=== PATIENT | female | born 1975 | race Caucasian/White ===

== ENCOUNTER 2016-11-08 09:55 | Inpatient (IN) | payer SELFPAY ==
[~2016-11-08] VITALS: Ht 162.6 cm; Wt 69.5 kg
[2016-11-08] VITALS (12 sets, daily range): BP systolic 106–143; BP diastolic 58–79
[2016-11-08 10:41] LABS: LYMPH # 1.5 K/mm3 (0.7-4.5); LYMPH % 15.3 % (10-50.0)
[2016-11-08 10:46] LABS: HEMOGLOBIN 10.3 g/dL (12.2-16.2)
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
--- NOTE | 2016-11-08 11:47 | ACUTE CARE PROGRESS NOTE (QUA) ---
Progress Notes Subjective Date 11/08/16 Time 1138 Note 41 y.o. WF admitted via ER with GI bleed. [place] poorly this AM, vomited coffee ground material, passed out. Emesis in ER hemoccult positive. No such prior history, but father has had ulcer disease. Water source is city water, not cistern. No medications. Occasional Tylenol, not Aspirin or Ibuprofen. Periods are regular but heavy. No smoking, no ETOH. She is Yarsani. Objective Findings Last VS-Temp:98.2 B/P:107/53 Pulse:90 Resp:20 SaO2:100 Last weight lbs:150 oz:0 K.040 Method:Stated Exam General appearance: alert, no acute distress Eyes: anicteric, conjunctiva clear, PERRLA ENT: mucous membranes moist, teeth/gums normal Neck: no JVD, thyroid (normal) Cardiovascular: regular rate & rhythm Respiratory: clear to auscultation ABD: soft, no tenderness, no guarding, no organomegaly Genitourinary: not examined Extremities: no peripheral edema Skin: dry, intact, pale (a bit sallow) Neuro: alert, no deficit, oriented, speech clear Reviewed: vital signs, lab results Assessment/Plan Problem List 1. Gastrointestinal hemorrhage Patient condition Stable Plan: IV fluids. T&C. Screen for H. pylori. Surgical consult for endoscopy. This inpt stay is expected to cross 2 MNs from start of care Yes at 1146
[2016-11-08] MEDS ORDERED: NOMEDS XX (12:21)
--- NOTE | 2016-11-08 12:29 | HISTORY AND PHYSICAL REPORT ---
History and Physical ([facility]) Date of admission: 11/08/16 Chief complaint: GI Bleed History: History of Present Illness: Ms. Fay is a 41 y.o. WF admitted via ER with GI bleed. She had felt poorly this morning with some lightheadedness and dizziness and describes passing out abruptly while in bed. When she came to, she vomited some coffee ground material. Her emesis in ER was hemoccult positive. CXR and CT of the abdomen and pelvis were performed and preliminary results are pending. She has no such prior history, but father has had ulcer disease. Her water source is city water, not cistern. She takes no medications other than occasional tylenol, not aspirin or ibuprofen. Her periods are regular but heavy. She does not smoke or drink alcohol. She is Caodaism. She will be admitted for surgery consult for endoscopy. Past Medical History: Medical History: CAD? No Angina: No KS: No Hypertension? No Hyperlipidemia? No CHF? No DVT? No PE? No COPD? No Asthma? No Anemia? No GERD? No Gastric ulcers? No GI Bleed? No Hernia? No Thyroid Problems? No Hypothyroidism? No CVA? No Seizures? No Diabetes? No Renal Insuffiency? No UTI? No Stones? No BPH? No GB Disease: No Nephritic Syndrome? No Asplenia? No Hepatitis? No Sickle Cell Disease? No Arthritis? No Migraines? No Cataracts? No Glaucoma? No MRSA? No HIV? No TB? No Anxiety? No Depression? No Cancer? No More? No Surgical history: Previous Surgery?N Medications: Reported Medications No Home Medications (NO HOME MEDICATIONS) 1 EACH XX ONCE Allergies: Coded Allergies: No Known Allergies (11/08/16) Family History: Family history: Postive for: CAD, DM, HTN, cancer, stroke. Social History: Smoking Hx Tobacco: No Smoker: Never Smoker Type: N/A Packs/day: N/A Are you exposed to second hand No Alcohol: Alcohol: No Hx of Drug Use: Drug Use? 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 No Constitutional Positive for: fatigue, weak. No: chills. ENT No: nasal congestion, sinus problems, sore throat. Cardiovascular No: [place], chest pain, edema, palpitations. Respiratory No: dyspnea on exertion, shortness of air, non-productive, productive cough ( sputum), wheezing. GI Positive for: abdominal pain, hematemeis, nausea, vomitting. No: GERD, constipation, diarrhea. (female) No: frequency, hematuria, urgency, vaginal discharge. Skin No: bruising, itching, rash. Neurological Positive for: change in LOC, dizziness, light headed, syncope. No: bladder dysfunction, bowel dysfunction, gait problem, numbness, slurred speech. Immune/allergy No: allergy, itching. Eyes No: blurry vision, discharge, vision loss. Musculoskeletal No: extremity pain, joint pain, myalgias. Heme No: bleeding, bruising. Psychiatric No: anxious, depression, change in mental status. Physical Exam: Vital signs: 1ST Vital Signs Result Date Time Pulse Ox 99 11/08 957 B/P 143/79 11/08 957 Temp 98.2 11/08 957 Pulse 87 11/08 957 Resp 16 11/08 957 O2 Delivery ROOM AIR 11/08 1219 Exam: General appearance: alert, awake, no acute distress Eyes: anicteric, PERRLA, no discharge ENT: mucous membranes moist, pharynx normal, teeth/gums normal, nares patent Neck: non-tender, supple, no LAD Cardiovascular: regular rate & rhythm, normal peripheral pulses Respiratory: CTAB A&P ABD: non-distended, no rebound, soft, no tenderness, no guarding, no organomegaly, no palpable mass, bowel sounds present Extremities: moves all, no peripheral edema, warm, no calf tenderness Skin: dry, intact, warm Neuro: alert, applications processor II-XII nml as tested, oriented, speech clear Lab data: Labs: Laboratory Tests 11/08/16 1020: Creatine Kinase 88, CK-MB (CK-2) Rel Index 1.3, CK and CKMB Interp 1.1, Troponin I < 0.02 11/08/16 1020: Amylase 44, Lipase 134 11/08/16 1020: Sodium 144, Potassium 3.4 L, Chloride 107, Carbon Dioxide 27, BUN 24 H, Creatinine 0.8, Estimated Creat Clear 97, Estimated GFR (MDRD) 78, Glucose 155 H, Calcium 8.0 L, Total Bilirubin 0.2, AST 9 L, ALT 17, Alkaline Phosphatase 45 L, Total Protein 6.6, Albumin 3.3 L, Globulin 3.3 H, Albumin/Globulin Ratio 1.0 L, WBC 10.0, RBC 3.49 L, Hgb 10.3 L, Hct 31.6 L, MCV 90.6, RDW 13.0, Plt Count 214, MPV 7.4, Gran % 79.9, Gran # 8.0 H, Lymphocytes % 15.3, Monocytes % 3.5, Eosinophils % 1.2, Basophils % 0.2, Lymphocytes # 1.5, Monocytes # 0.4, Eosinophils # 0.1, Basophils # 0.0, PUBS MCHC 32.6, MCH 29.5 11/08/16 1015: PT 11.2, INR 1.04 11/08/16 0957: Emesis for Blood POSITIVE Radiology results: Results: 11/08/16 CT Abdomen/Pelvis with Contrast: Pending Diagnosis(es): 1. Gastrointestinal hemorrhage 2. Anemia Plan: per Dr. Corona - LUIS ARMANDO, T&C, screen for H.pylori, Surgery consult for endoscopy. at [id number]
--- NOTE | 2016-11-08 12:42 | RADIOLOGY REPORT PS360 ---
CT ABD PELVIS W/ CONTRAST CLINICAL INDICATION: ABD PAIN, HEMATHEMESIS ORDERING PHYSICIAN: Luana Corona MD PATIENT AGE: 41 years COMPARISON: None TECHNIQUE: Axial images obtained with sagittal and coronal reformats. PROCEDURE: Oral Contrast: None IV Contrast: 75 mL of [id number]. FINDINGS: There is alveolar opacification in the left lower lobe consistent with pneumonia. There is a large lobulated partially calcified peripherally enhancing mass in the right upper quadrant measuring 8.5 cm AP, 7.7 cm transverse, an 8.6 cm cephalad to caudad. This is inferior to the gallbladder. This is directly adjacent to the medial anterior aspect of the right hepatic lobe. A fat plane is not present between the right hepatic lobe and this mass. This is anterior to the right kidney. There is however a fat plane preserved between this mass and the right kidney.. This mass is superior to the hepatic flexure of the colon. The calcifications within this mass are coarse and are mostly central. The spleen, adrenal glands, and pancreas have an unremarkable appearance. There are bilateral nonobstructing renal calculi in the upper and lower pole on the right measuring up to 4 mm and in the lower pole on the left measuring 4 mm. No hydronephrosis. No ureteral calculi. Unremarkable appendix. No evidence of diverticulitis. Fluid is present within the colon greater in the ascending and transverse colon. Fluid and/or liquid feces noted within the descending and sigmoid colon. Diarrhea disease is considered. No small bowel obstruction. There is small amount fluid in the small bowel nonspecific. The uterus is somewhat canted toward the left with mild bulging is of the uterus. No acute bony anomalies are evident. IMPRESSION: 1. Unusual partially calcified enhancing right upper quadrant mass. Etiology is indeterminate. The mass is inseparable from the right hepatic lobe. Exophytic liver lesion such as a large hemangioma is a consideration. A carcinoid tumor is also a consideration. However, there is not a significant desmoplastic reaction around the lesion. Further evaluation may be obtained with CT without and with contrast and with delayed imaging/hemangioma protocol. 2. Fluid-filled large bowel suggesting diarrhea disease/colitis.
--- NOTE | 2016-11-08 13:30 | CONSULT NOTE ---
See Addendum Standard Demographics Patient Demo Date of Consultation: 11/08/16 Referring Provider: Chema Corona MD Reason for Consultation: hematemesis PRIMARY DIAGNOSIS: ANEMIA Allergies: Coded Allergies: No Known Allergies (11/08/16) History of Present Illness Chief Complaint: Nausea and vomiting History of Present Illness: This is a 41-year-old female seen in consultation from Dr. Corona service for evaluation regarding hematemesis. She presented to the emergency department earlier today with dizziness/lightheadedness. She believes that she "passed out in bed". Subsequently, she developed some dark emesis that was described as "coffee ground material". No melena. She states that she feels "a little better right now". She has had no episodes of emesis since admission. Past Medical History Denies: CAD, COPD, hypertension, peptic ulcer disease. Surgical History Previous Surgery?N Allergies Coded Allergies: No Known Allergies (11/08/16) Medications: Reported Medications No Home Medications (NO HOME MEDICATIONS) 1 EACH XX ONCE Family history Postive for: CAD, HTN, cancer. Smoking Hx Tobacco: No Smoker: Never Smoker Type: N/A Packs/day: N/A Are you/the child exposed to second-hand smoke: No Alcohol Alcohol: No Hx of Drug Use Drug Use? No Review of Systems Constitutional No: recent weight loss. Skin No: bruising. Immune/allergy No: anaphalaxis. Eyes No: discharge. ENT No: nose bleed. Respiratory No: pneumonia. Cardiovascular No: palpitations. GI Positive for: hematemeis, nausea, vomitting. No: melena, rectal pain. (female) No: hematuria. Musculoskeletal No: myalgias. Heme No: petechia. Endocrine No: polydipsia. Neurological Positive for: change in LOC, dizziness. Psychiatric No: anxious. Physical Exam VS/I&O Vital Signs Date Time Temp Pulse Resp B/P Pulse O2 O2 Flow FiO2 Ox Delivery Rate 11/08 1312 97 11/08 1312 100 ROOM AIR 11/08 1219 98.0 97 18 112/60 100 ROOM AIR 11/08 1211 98.2 90 20 107/53 100 11/08 1102 90 20 107/53 100 11/08 1101 100 107/53 11/08 1101 99 113/73 11/08 1100 87 121/78 11/08 0958 98.2 87 16 143/79 99 Exam General appearance no acute distress Neck full ROM Respiratory no distress Cardiovascular regular rate and rhythm Abdomen soft Skin no gross abnormalities Plan Plan: Impression: Hematemesis/upper gastrointestinal hemorrhage - currently hemodynamically stable with some recent improvement in symptoms Plan: 1) close observations for signs of ongoing bleeding 2) follow-up pending hemoglobin/hematocrit (as ordered later today) 3) esophagogastroduodenoscopy-I have discussed the risks and benefits and she agrees to proceed. Barring need for emergent endoscopy, this procedure will be performed tomorrow morning to allow for better clearance of gastric contents 4) sips and chips are okay for now, but she will be made NPO after midnight for endoscopy in the morning at 1330
[2016-11-08 14:42] LABS: HEMOGLOBIN 8.5 g/dL (12.2-16.2)
--- NOTE | 2016-11-08 16:16 | PHARMACY CLINIC NOTE ---
Patient Demographics Patient Demographics Admission date: 11/08/16 Date: 11/08/16 Time: 1615 Allergies Coded Allergies: No Known Allergies (11/08/16) HEIGHT- FT: 5 IN: 4.00 K.542 VTE General Information Labs: Laboratory Tests 11/08 11/08 11/08 1415 1020 1015 Coagulation PT (9.4 - 11.8 SECONDS) 11.2 INR (0.9 - 1.1) 1.04 Hematology Hgb (12.2 - 16.2 g/dL) 8.5 L 10.3 L Hct (37.0 - 47.0 %) 25.6 L 31.6 L Plt Count (142 - 424 K/mm3) 214 Disclaimer The following section includes nursing documentation that has been pulled in for pharmacy review. Patient's VTE score: 1 Patient's VTE Risk: VERY LOW RISK Clinical trial participant? No VTE prophylaxis [id number] VTE prophylaxis ordered? Yes Type of prophylaxis/treatment: ALISA at 1615
[2016-11-08 20:24] LABS: HEMOGLOBIN 7.7 g/dL (12.2-16.2)
[2016-11-08 23:44] LABS: ABO BLOOD TYPE A; ANTIHUMAN GLOB CROSSMATCH COMPAT; RH BLOOD TYPE POSITIVE
[2016-11-09] VITALS (53 sets, daily range): BP systolic 66–162; BP diastolic 27–96
[2016-11-09 04:30] LABS: HEMOGLOBIN 7.3 g/dL (12.2-16.2)
[2016-11-09 06:23] LABS: ANTIHUMAN GLOB CROSSMATCH COMPAT
[2016-11-09 06:24] LABS: ANTIHUMAN GLOB CROSSMATCH COMPAT
--- NOTE | 2016-11-09 06:33 | SURGEON PROGRESS NOTE ---
Subjective data Subjective data: No new complaints. Posttransfusion hemoglobin actually lower than pretransfusion hemoglobin. No hematemesis. Objective data Vitals,I&O,and Labs: Vital signs, intake and output,and available lab data for the last 24 hours is as noted below. Vital Signs Date Time Temp Pulse Resp B/P Pulse O2 O2 Flow FiO2 Ox Delivery Rate 11/09 0555 98.7 105 18 112/70 09/08 0540 98.7 102 16 115/72 09/08 0525 99.2 103 16 115/70 09/08 0520 99.1 100 15 115/61 09/08 0515 99.3 101 16 117/67 09/08 0510 99.4 104 16 124/74 09/08 0429 98.6 102 16 118/62 97 ROOM AIR 09/08 0240 98.8 106 18 112/65 09/08 0225 98.6 104 19 105/61 09/08 0210 98.7 100 18 103/64 09/08 0205 98.7 101 17 66/27 09/08 0200 98.7 100 17 101/43 09/08 0155 98.7 100 18 139/52 09/08 0135 98.8 97 16 134/63 09/08 0125 98.8 92 16 132/74 09/08 0025 98.7 89 16 122/76 09/08 0010 98.8 95 18 105/71 09/07 2357 99.0 99 16 113/68 100 ROOM AIR 09/07 2355 98.9 99 16 113/68 09/07 2340 98.9 103 16 118/58 09/07 2335 98.9 98 18 114/65 09/07 2330 98.9 105 16 106/60 09/07 2325 99.0 96 16 114/68 09/07 2008 99.1 107 18 115/65 98 09/07 2000 99.1 107 18 115/65 98 ROOM AIR 09/07 1548 114 121/70 09/07 1548 115 106/65 09/07 1546 99.0 110 18 115/66 100 ROOM AIR 09/07 1312 97 09/07 1312 98.0 97 18 112/60 09/07 1312 100 ROOM AIR 09/07 1219 98.0 97 18 112/60 100 ROOM AIR 09/07 1211 98.2 90 20 107/53 100 09/07 1102 90 20 107/53 100 11/08 1101 100 107/53 11/08 1101 99 113/73 11/08 1100 87 121/78 09 0958 98.2 87 16 143/79 99 09/07 1500 11/08 2300 11/09 0700 Intake Total 0 620 Output Total 1000 Balance 0 -380 Intake, IV 620 Intake, Oral 0 Output, Urine 1000 Patient 69.542 kg Weight Laboratory Tests Test Result Date Time Chemistry Sodium (mmoL/L) 144 11/08 1020 Potassium (mmoL/L) 3.4 11/08 1020 Chloride (mmoL/L) 107 11/08 1020 Carbon Dioxide (mmoL/L) 27 11/08 1020 BUN (mg/dL) 24 11/08 1020 Creatinine (mg/dL) 0.8 11/08 1020 Estimated Creat Clear (ML/MIN) 97 11/08 1020 Estimated GFR (MDRD) (ML/MIN) 78 11/08 1020 Glucose (mg/dL) 155 11/08 1020 Calcium (mg/dL) 8.0 11/08 1020 Total Bilirubin (mg/dL) 0.2 11/08 1020 AST (U/L) 9 11/08 1020 ALT (U/L) 17 11/08 1020 Alkaline Phosphatase (U/L) 45 11/08 1020 Creatine Kinase (U/L) 88 11/08 1020 CK-MB (CK-2) Rel Index (U/L) 1.3 11/08 1020 CK and CKMB Interp (ng/mL) 1.1 11/08 1020 Troponin I (ng/mL) < 0.02 11/08 1020 Total Protein (gm/dL) 6.6 11/08 1020 Albumin (gm/dL) 3.3 11/08 1020 Globulin (gm/dL) 3.3 11/08 1020 Albumin/Globulin Ratio 1.0 11/08 1020 Amylase (U/L) 44 11/08 1020 Lipase (U/L) 134 11/08 1020 Coagulation PT (SECONDS) 11.2 11/08 1015 INR 1.04 11/08 1015 Hematology WBC (K/MM3) 10.0 11/08 1020 RBC (M/mm3) 3.49 11/08 1020 Hgb (g/dL) 7.3 11/09 0410 Hct (%) 22.6 11/09 0410 MCV (fl) 90.6 11/08 1020 RDW (%) 13.0 11/08 1020 Plt Count (K/mm3) 214 11/08 1020 MPV (fl) 7.4 11/08 1020 Gran % (%) 79.9 11/08 1020 Gran # (K/mm3) 8.0 11/08 1020 Lymphocytes % (%) 15.3 11/08 1020 Monocytes % (%) 3.5 11/08 1020 Eosinophils % (%) 1.2 11/08 1020 Basophils % (%) 0.2 11/08 1020 Lymphocytes # (K/mm3) 1.5 11/08 1020 Monocytes # (K/mm3) 0.4 11/08 1020 Eosinophils # (K/mm3) 0.1 11/08 1020 Basophils # (K/MM3) 0.0 11/08 1020 PUBS MCHC (g/dl) 32.6 11/08 1020 Immunology Antibody Screen NEGATIVE 11/08 1015 MCH (pg) 29.5 11/08 1020 Miscellaneous Miscellaneous Test POSITIVE 11/08 1015 Misc Test Units BLOOD UNIT RELEASE 11/09 0145 Other Body Source Emesis for Blood POSITIVE 11/08 0957 Assessment findings Assessment Exam General appearance: no acute distress Cardiovascular: tachycardia ABD: soft Patient plan Diagnoses: Gastrointestinal hemorrhage - possible ongoing blood loss is noted by declining hemoglobin RIGHT upper quadrant abdominal mass Plan: (see below) Additional data: The patient is being transferred to the endoscopy suite for EGD. at 0632
[2016-11-09 06:51] LABS: LYMPH # 1.5 K/mm3 (0.7-4.5); LYMPH % 16.6 % (10-50.0)
[2016-11-09 07:04] LABS: HEMOGLOBIN 7.9 g/dL (12.2-16.2)
--- NOTE | 2016-11-09 07:26 | Operative Note ---
Surgeon/Diagnoses Surgeon/[employer](s) Date of procedure: 11/09/16 Surgeon: MD Twila Price Diagnoses Pre-op diagnosis: Upper gastrointestinal hemorrhage Post-op diagnosis Duodenal ulcer with recent bleed Procedure Procedure Procedure: Esophagogastroduodenoscopy with biopsy and epinephrine injection Indications: ADRIEN HERNANDEZ is a 41 year-old Female with a history of recent hematemesis and declining hemoglobin. Findings: Patchy gastritis Moderately sized crater ulcer in the duodenal bulb with clot in the base No active bleeding noted 13 mL of 1:10,000 epinephrine injected Procedure Description: After informed consent was obtained, the patient was taken to the endoscopy suite. Monitored anesthesia care ensued after she was transferred to the LEFT lateral decubitus position. The gastroscope was advanced. The stomach was entered. Patchy gastritis was noted. Antral biopsies were obtained. The pylorus was intubated. A moderately sized crater ulcer in the bulb was noted. Evaluation of the base revealed clot. No ongoing bleeding was noted. Secondary to recent hemorrhage and clot at the base the decision was made to proceed with epinephrine injection. 13 mL of 1:10,000 epinephrine was injected in quadrants around the margin of the ulcer. The gastroscope was carefully removed and the patient was transferred to recovery. EBL (ml): 1 Anesthesia: Monitored anesthesia care Complications: No immediate Specimens: Antral biopsies Disposition Disposition: Stable to recovery from where she will be transferred back to the floor. at 9124
--- NOTE | 2016-11-09 07:34 | Anesthesia Record ---
Anesthesia Record Part I Total IV fluids: 300 EBL (ml): 0 Urine Output: 0 B/P: 118/70 % SaO2: 100 Pulse: 72 Resps: 16 Temp: 98.0 Patient is: Drowsy, Nasal O2, Stable Stable to PACU at: 0704 at 0734
--- NOTE | 2016-11-09 07:35 | Anesthesia Record ---
Anesthesia Record Part II Discharge time: 733 Destination: Second Floor PACU nurse assessment review? Yes Patient is: Stable Anesthesia complications? No at 0734
--- NOTE | 2016-11-09 09:04 | ACUTE CARE PROGRESS NOTE (QUA) ---
See Addendum Progress Notes Subjective Date 11/09/16 Time 0820 Note Pt up from endo with nausea and epigastric discomfort. One episode of emesis as well as some loose stools. She is resting somewhat restlessly with her at the bedside. Blood transfusion in progress. Objective Findings Last VS-Temp:98.0 B/P: 118/70 Pulse:72 Resp:16 SaO2:100 ROOM AIR Last weight lbs: 153 oz: 5 K.542 Method: Bed Scales Laboratory Tests 11/09/16 0752: Misc Test Units BLOOD UNIT RELEASE 11/09/16 0620: Sodium 145, Potassium 4.1, Chloride 115 H, Carbon Dioxide 23, BUN 36 H, Creatinine 0.6, Estimated Creat Clear 133, Estimated GFR (MDRD) 109, Glucose 119 H, Calcium 6.6 L, WBC 9.0, RBC 2.69 L, Hgb 7.9 *L, Hct 23.5 *L, MCV 87.4, RDW 14.2, Plt Count 149, MPV 7.5, Gran % 77.8, Gran # 7.0, Lymphocytes % 16.6, Monocytes % 5.0, Eosinophils % 0.3, Basophils % 0.2, Lymphocytes # 1.5, Monocytes # 0.5, Eosinophils # 0.0, Basophils # 0.0, PUBS MCHC 33.8, MCH 29.5 11/09/16 0610: WBC 8.5, RBC 2.72 L, Hgb 8.0 L, Hct 23.8 *L, MCV 87.3, RDW 14.1, Plt Count 150 , MPV 7.3 L, Gran % 76.9, Gran # 6.6, Lymphocytes % 17.9, Monocytes % 4.8, Eosinophils % 0.2, Basophils % 0.2, Lymphocytes # 1.5, Monocytes # 0.4, Eosinophils # 0.0, Basophils # 0.0, PUBS MCHC 33.5, MCH 29.2 11/09/16 0500: Misc Test Units BLOOD UNIT RELEASE 11/09/16 0410: Hgb 7.3 *L, Hct 22.6 *L 11/09/16 0145: Misc Test Units BLOOD UNIT RELEASE 11/08/16 2315: Misc Test Units BLOOD UNIT RELEASE 11/08/16 1957: Hgb 7.7 *L, Hct 23.7 *L 11/08/16 1415: Hgb 8.5 L, Hct 25.6 L 11/08/16 1020: Creatine Kinase 88, CK-MB (CK-2) Rel Index 1.3, CK and CKMB Interp 1.1, Troponin I < 0.02 11/08/16 1020: Amylase 44, Lipase 134 11/08/16 1020: Sodium 144, Potassium 3.4 L, Chloride 107, Carbon Dioxide 27, BUN 24 H, Creatinine 0.8, Estimated Creat Clear 97, Estimated GFR (MDRD) 78, Glucose 155 H, Calcium 8.0 L, Total Bilirubin 0.2, AST 9 L, ALT 17, Alkaline Phosphatase 45 L, Total Protein 6.6, Albumin 3.3 L, Globulin 3.3 H, Albumin/Globulin Ratio 1.0 L, WBC 10.0, RBC 3.49 L, Hgb 10.3 L, Hct 31.6 L, MCV 90.6, RDW 13.0, Plt Count 214, MPV 7.4, Gran % 79.9, Gran # 8.0 H, Lymphocytes % 15.3, Monocytes % 3.5, Eosinophils % 1.2, Basophils % 0.2, Lymphocytes # 1.5, Monocytes # 0.4, Eosinophils # 0.1, Basophils # 0.0, PUBS MCHC 32.6, MCH 29.5 11/08/16 1015: PT 11.2, INR 1.04, Antibody Screen NEGATIVE, Miscellaneous Test POSITIVE 11/08/16 0957: Emesis for Blood POSITIVE Vital Signs Result Date Time Pulse Ox 100 11/09 733 B/P 118/70 11/09 733 Temp 98.0 11/09 733 Pulse 72 11/09 733 Resp 16 11/09 733 O2 Delivery ROOM AIR 11/09 042 Exam General appearance: drowsy, slightly restless, responds to voice Cardiovascular: regular rate & rhythm, normal peripheral pulses Respiratory: CTAB A&P ABD: non-distended, no rebound, soft, no guarding, no organomegaly, no palpable mass, bowel sounds present, ttp epigastrium Extremities: moves all, no peripheral edema, warm, no calf tenderness Reviewed: medications, vital signs, lab results, radiology report, consult note, nursing notes Assessment/Plan Problem List 1. Gastrointestinal hemorrhage 2. Anemia Patient condition Guarded Plan: Will continue to monitor H&H post transfusion. Further per GI. This inpt stay is expected to cross 2 MNs from start of care Yes at 0904 at 0923
[2016-11-09 11:29] LABS: HEMOGLOBIN 9.5 g/dL (12.2-16.2)
[2016-11-09 14:24] LABS: HEMOGLOBIN 7.5 g/dL (12.2-16.2)
--- NOTE | 2016-11-09 15:25 | ACUTE CARE PROGRESS NOTE (QUA) ---
Progress Notes Subjective Date 11/09/16 Time 1520 Note I was contacted by patient's nurse, who reported possible seizure activity, which was brief, and resolved. The patient's hands moses up to her chest and she seemed unconscious. I am in [facility] in [place]. I directed nurse to obtain stat H &H and I contacted Dr. Vasquez. He went to see patient and found that the Hgb has again declined to 7.5. Dr. Vasquez took the patient back for endoscopy. Objective Findings Last VS-Temp:98.5 B/P:146/90 Pulse:99 Resp:16 SaO2:100 ROOM AIR Last weight lbs:153 oz:5 K.542 Method:Bed Scales Assessment/Plan Problem List 1. Gastrointestinal hemorrhage 2. Anemia Plan: Repeat endoscopy per Dr. Vasquez. This inpt stay is expected to cross 2 MNs from start of care Yes at 1521
[2016-11-09 15:43] LABS: ANTIHUMAN GLOB CROSSMATCH COMPAT
[2016-11-09 15:45] LABS: ANTIHUMAN GLOB CROSSMATCH COMPAT
--- NOTE | 2016-11-09 15:53 | Operative Note ---
Surgeon/Diagnoses Surgeon/Fraud Investigator(s) Date of procedure: 11/09/16 Surgeon: MD Twila Vasquez Fraud Investigator(s): Dr. Mcrae Diagnoses Pre-op diagnosis: Recurrent hemorrhage from duodenal ulcer Post-op diagnosis Same Procedure Procedure Procedure: Esophagogastroduodenoscopy with epinephrine injection Indications: ADRIEN HERNANDEZ is a 41 year-old Female with a history of acute hemorrhage from duodenal ulcer. Earlier today she underwent esophagogastroduodenoscopy with biopsy and injection of 12 mL of 1: 10,000 epinephrine. She initially convalesced well on the floor; however, developed recurrent "fainting spell". Repeat hemoglobin revealed a drop from 9.5-7.5. She was taken emergently to the endoscopy suite for repeat EGD. Findings: A moderate amount of old blood in gastric lumen. Close evaluation of duodenal ulcer revealed some clot within the crater, but no active bleeding. No significant blood was noted to be distal to the ulcer. 18 mL of 1:10,000 epinephrine injected in and around ulcer Procedure Description: The patient was taken emergently to the endoscopy suite. Monitored anesthesia care ensued after she was transferred to the LEFT lateral decubitus position. The gastroscope was advanced to the site of the duodenal ulcer. Angulation made visualization very difficult. Close evaluation of the stomach revealed a moderate amount of "old blood". Close evaluation of the ulcer revealed no active bleeding. No blood was distal to the ulcer. Fresh clot in the ulcer base was initially seen. Tight angulation made sclerotherapy exceptionally difficult and given the fact that no active bleeding was noted the risk of multiple attempts was deemed to be greater than the benefit. 18 mL of 1:10,000 epinephrine was injected in and around the ulcer. Again, no active bleeding was noted. Appropriate "blanching" was noted secondary to the epinephrine. The gastroscope was removed and the patient was transferred to the stepdown unit for further close monitoring. EBL (ml): 1 Anesthesia: Monitored anesthesia care Complications: No immediate Specimens: None Disposition Disposition: The patient was transferred in guarded, but stable condition to the stepdown unit. at 2294
--- NOTE | 2016-11-09 18:10 | ACUTE CARE PROGRESS NOTE (QUA) ---
Progress note: - Patient has remained hemodynamically tenuous despite receiving 7 units packed red blood cells. I reviewed her CT scan films in great detail. I am reasonably concerned that she may have a RIGHT upper quadrant large mass which is the source of hemorrhage and this may be secondarily involving the duodenum. Given the fact that this could be mass originating from the liver, gallbladder, or less likely pancreas and given the fact that she could require interventional angiography with embolization I will make arrangements for transfer. I have discussed the case with [facility] blue surgery physician Dr. Jolly who has agreed to accept the patient in transfer. at 1810
[2016-11-09 18:40] LABS: HEMOGLOBIN 10.4 g/dL (12.2-16.2)
[2016-11-09 20:56] LABS: ANTIHUMAN GLOB CROSSMATCH COMPAT
--- NOTE | 2016-11-11 20:51 | DISCHARGE SUMMARY STANDARD ---
Discharge Summary (FCA2) Date of admission: 11/08/16 Date of discharge: 11/09/16 Problem List: 1. Gastrointestinal hemorrhage 2. Anemia 3. Upper GI bleed History of present illness: Ms. Fay is a 41 y.o. [place] WF admitted via ER with GI bleed. She had felt poorly the morning of admission with some lightheadedness and dizziness. She described passing out abruptly while in bed. When she came to, she had vomited some coffee ground material. She was brought to the ER. Emesis was hemoccult positive. CXR and CT of the abdomen/pelvis were performed and preliminary results were pending at time of admission. She related no such prior history. Father had ulcer disease. Her water source was noted to be city water, not cistern. She was taking no medications other than occasional tylenol. Her periods were regular but heavy. She did not smoke or drink alcohol. She was admitted for surgery consult for endoscopy. Exam on admission: 1ST Vital Signs Result Date Time Pulse Ox 99 11/08 957 B/P 143/79 11/08 957 Temp 98.2 11/08 957 Pulse 87 11/08 09 Resp 16 11/08 957 O2 Delivery ROOM AIR 11/08 1219 Exam: General appearance: alert, awake, no acute distress Eyes: anicteric, PERRLA, no discharge ENT: mucous membranes moist, pharynx normal, teeth/gums normal, nares patent Neck: non-tender, supple, no LAD Cardiovascular: regular rate & rhythm, normal peripheral pulses Respiratory: CTAB A&P ABD: non-distended, no rebound, soft, no tenderness, no guarding, no organomegaly, no palpable mass, bowel sounds present Extremities: moves all, no peripheral edema, warm, no calf tenderness Skin: dry, intact, warm Neuro: alert, e marketing specialist II-XII nml as tested, oriented, speech clear Hospital Course: Patient was started on PPI, IVF, and sulcrafate on admission. Surgeon,Dr. Price, was consulted who noted posttransfusion hemoglobin actually lower than pretransfusion hemoglobin with no hematemesis. Patient did continue to have bloody stools. Patient had EGD with biopsy and injection of 12 mL of 1: 10,[address] Price/Dr. Mcrae 11/09/16 with reported duodenal ulcer, gastritis, and no active bleeding. She initially convalesced well on the floor; however, developed recurrent "fainting spell". Repeat hemoglobin revealed a drop from 9.5-7.5. She was taken emergently to the endoscopy suite for repeat EGD with of a moderate amount of old blood in gastric lumen. Close evaluation of duodenal ulcer revealed some clot within the crater, but no active bleeding. No significant blood was noted to be distal to the ulcer; 18 mL of 1:10,000 epinephrine injected in and around ulcer. Patient remained hemodynamically tenuous despite receiving 7 units packed red blood cells. Dr Mcrae reviewed CT scan films in great detail and was reasonably concerned that she may have a RIGHT upper quadrant large mass which was the source of hemorrhage secondarily involving the duodenum. Possibility of a mass originating from the liver, gallbladder, or less likely pancreas was considered that could require interventional angiography with embolization. Arrangements were made for transfer. Dr. Mcrae discussed the case with [facility] blue surgery physician Dr. Jolly who agreed to accept the patient in transfer. Patient received a total of 7 units of PRBC. Laboratory data this visit: 11/08/16 1020: Creatine Kinase 88, CK-MB (CK-2) Rel Index 1.3, CK and CKMB Interp 1.1, Troponin I < 0.02 11/08/16 1020: Amylase 44, Lipase 134 11/08/16 1020: Sodium 144, Potassium 3.4 L, Chloride 107, Carbon Dioxide 27, BUN 24 H, Creatinine 0.8, Estimated Creat Clear 97, Estimated GFR (MDRD) 78, Glucose 155 H, Calcium 8.0 L, Total Bilirubin 0.2, AST 9 L, ALT 17, Alkaline Phosphatase 45 L, Total Protein 6.6, Albumin 3.3 L, Globulin 3.3 H, Albumin/Globulin Ratio 1.0 L, WBC 10.0, RBC 3.49 L, Hgb 10.3 L, Hct 31.6 L, MCV 90.6, RDW 13.0, Plt Count 214, MPV 7.4, Gran % 79.9, Gran # 8.0 H, Lymphocytes % 15.3, Monocytes % 3.5, Eosinophils % 1.2, Basophils % 0.2, Lymphocytes # 1.5, Monocytes # 0.4, Eosinophils # 0.1, Basophils # 0.0, PUBS MCHC 32.6, MCH 29.5 11/08/16 1015: PT 11.2, INR 1.04 11/08/16 0957: Emesis for Blood POSITIVE 11/09/16 0620: Sodium 145, Potassium 4.1, Chloride 115 H, Carbon Dioxide 23, BUN 36 H, Creatinine 0.6, Estimated Creat Clear 133, Estimated GFR (MDRD) 109, Glucose 119 H, Calcium 6.6 L, WBC 9.0, RBC 2.69 L, Hgb 7.9 *L, Hct 23.5 *L, MCV 87.4, RDW 14.2, Plt Count 149, MPV 7.5, Gran % 77.8, Gran # 7.0, Lymphocytes % 16.6, Monocytes % 5.0, Eosinophils % 0.3, Basophils % 0.2, Lymphocytes # 1.5, Monocytes # 0.5, Eosinophils # 0.0, Basophils # 0.0, [facility] MCHC 33.8, MCH 29.5 11/09/16 0610: WBC 8.5, RBC 2.72 L, Hgb 8.0 L, Hct 23.8 *L, MCV 87.3, RDW 14.1, Plt Count 150 , MPV 7.3 L, Gran % 76.9, Gran # 6.6, Lymphocytes % 17.9, Monocytes % 4.8, Eosinophils % 0.2, Basophils % 0.2, Lymphocytes # 1.5, Monocytes # 0.4, Eosinophils # 0.0, Basophils # 0.0, [facility] MCHC 33.5, MCH 29.2 11/09/16 0500: Misc Test Units BLOOD UNIT RELEASE 11/09/16 0410: Hgb 7.3 *L, Hct 22.6 *L 11/09/16 0145: Misc Test Units BLOOD UNIT RELEASE 11/08/16 2315: Misc Test Units BLOOD UNIT RELEASE 11/08/16 1957: Hgb 7.7 *L, Hct 23.7 *L 11/08/16 1415: Hgb 8.5 L, Hct 25.6 L 11/08/16 1020: Creatine Kinase 88, CK-MB (CK-2) Rel Index 1.3, CK and CKMB Interp 1.1, Troponin I < 0.02 11/08/16 1020: Amylase 44, Lipase 134 11/08/16 1020: Sodium 144, Potassium 3.4 L, Chloride 107, Carbon Dioxide 27, BUN 24 H, Creatinine 0.8, Estimated Creat Clear 97, Estimated GFR (MDRD) 78, Glucose 155 H, Calcium 8.0 L, Total Bilirubin 0.2, AST 9 L, ALT 17, Alkaline Phosphatase 45 L, Total Protein 6.6, Albumin 3.3 L, Globulin 3.3 H, Albumin/Globulin Ratio 1.0 L, WBC 10.0, RBC 3.49 L, Hgb 10.3 L, Hct 31.6 L, MCV 90.6, RDW 13.0, Plt Count 214, MPV 7.4, Gran % 79.9, Gran # 8.0 H, Lymphocytes % 15.3, Monocytes % 3.5, Eosinophils % 1.2, Basophils % 0.2, Lymphocytes # 1.5, Monocytes # 0.4, Eosinophils # 0.1, Basophils # 0.0, PUBS MCHC 32.6, MCH 29.5 11/08/16 1015: PT 11.2, INR 1.04, Antibody Screen NEGATIVE, Miscellaneous Test POSITIVE 11/08/16 0957: Emesis for Blood POSITIVE Imagin11/08/16 CT of abd/pelvis IMPRESSION: 1. Unusual partially calcified enhancing right upper quadrant mass. Etiology is indeterminate. The mass is inseparable from the right hepatic lobe. Exophytic liver lesion such as a large hemangioma is a consideration. A carcinoid tumor is also a consideration. However, there is not a significant desmoplastic reaction around the lesion. Further evaluation may be obtained with CT without and with contrast and with delayed imaging/hemangioma protocol. 2. Fluid-filled large bowel suggesting diarrhea disease/colitis. Disposition: Patient was transferred to [facility] via ambulance in stable and guarded condition. Orders with: SANJUANA PRICE MD Follow up: 2 WEEKS Activity: Limited activity Diet: Continue same diet Discharge to: ACUTE FACILITY TRANSFER Specify acute transfer facility: [facility] at 2051
--- NOTE | 2016-11-11 20:51 | DISCHARGE SUMMARY STANDARD ---
Discharge Summary (FCA2) Date of admission: 11/08/16 Date of discharge: 11/09/16 Problem List: 1. Gastrointestinal hemorrhage 2. Anemia 3. Upper GI bleed History of present illness: Ms. Fay is a 41 y.o. [place] WF admitted via ER with GI bleed. She had felt poorly the morning of admission with some lightheadedness and dizziness. She described passing out abruptly while in bed. When she came to, she had vomited some coffee ground material. She was brought to the ER. Emesis was hemoccult positive. CXR and CT of the abdomen/pelvis were performed and preliminary results were pending at time of admission. She related no such prior history. Father had ulcer disease. Her water source was noted to be city water, not cistern. She was taking no medications other than occasional tylenol. Her periods were regular but heavy. She did not smoke or drink alcohol. She was admitted for surgery consult for endoscopy. Exam on admission: 1ST Vital Signs Result Date Time Pulse Ox 99 11/08 957 B/P 143/79 11/08 957 Temp 98.2 11/08 957 Pulse 87 11/08 09 Resp 16 11/08 957 O2 Delivery ROOM AIR 11/08 1219 Exam: General appearance: alert, awake, no acute distress Eyes: anicteric, PERRLA, no discharge ENT: mucous membranes moist, pharynx normal, teeth/gums normal, nares patent Neck: non-tender, supple, no LAD Cardiovascular: regular rate & rhythm, normal peripheral pulses Respiratory: CTAB A&P ABD: non-distended, no rebound, soft, no tenderness, no guarding, no organomegaly, no palpable mass, bowel sounds present Extremities: moves all, no peripheral edema, warm, no calf tenderness Skin: dry, intact, warm Neuro: alert, oracle forms developer II-XII nml as tested, oriented, speech clear Hospital Course: Patient was started on PPI, IVF, and sulcrafate on admission. Surgeon,Dr. Price, was consulted who noted posttransfusion hemoglobin actually lower than pretransfusion hemoglobin with no hematemesis. Patient did continue to have bloody stools. Patient had EGD with biopsy and injection of 12 mL of 1: 10,[address] Price/Dr. Mcrae 11/09/16 with reported duodenal ulcer, gastritis, and no active bleeding. She initially convalesced well on the floor; however, developed recurrent "fainting spell". Repeat hemoglobin revealed a drop from 9.5-7.5. She was taken emergently to the endoscopy suite for repeat EGD with of a moderate amount of old blood in gastric lumen. Close evaluation of duodenal ulcer revealed some clot within the crater, but no active bleeding. No significant blood was noted to be distal to the ulcer; 18 mL of 1:10,000 epinephrine injected in and around ulcer. Patient remained hemodynamically tenuous despite receiving 7 units packed red blood cells. Dr Mcrae reviewed CT scan films in great detail and was reasonably concerned that she may have a RIGHT upper quadrant large mass which was the source of hemorrhage secondarily involving the duodenum. Possibility of a mass originating from the liver, gallbladder, or less likely pancreas was considered that could require interventional angiography with embolization. Arrangements were made for transfer. Dr. Mcrae discussed the case with [facility] blue surgery physician Dr. Jolly who agreed to accept the patient in transfer. Patient received a total of 7 units of PRBC. Laboratory data this visit: 11/08/16 1020: Creatine Kinase 88, CK-MB (CK-2) Rel Index 1.3, CK and CKMB Interp 1.1, Troponin I < 0.02 11/08/16 1020: Amylase 44, Lipase 134 11/08/16 1020: Sodium 144, Potassium 3.4 L, Chloride 107, Carbon Dioxide 27, BUN 24 H, Creatinine 0.8, Estimated Creat Clear 97, Estimated GFR (MDRD) 78, Glucose 155 H, Calcium 8.0 L, Total Bilirubin 0.2, AST 9 L, ALT 17, Alkaline Phosphatase 45 L, Total Protein 6.6, Albumin 3.3 L, Globulin 3.3 H, Albumin/Globulin Ratio 1.0 L, WBC 10.0, RBC 3.49 L, Hgb 10.3 L, Hct 31.6 L, MCV 90.6, RDW 13.0, Plt Count 214, MPV 7.4, Gran % 79.9, Gran # 8.0 H, Lymphocytes % 15.3, Monocytes % 3.5, Eosinophils % 1.2, Basophils % 0.2, Lymphocytes # 1.5, Monocytes # 0.4, Eosinophils # 0.1, Basophils # 0.0, PUBS MCHC 32.6, MCH 29.5 11/08/16 1015: PT 11.2, INR 1.04 11/08/16 0957: Emesis for Blood POSITIVE 11/09/16 0620: Sodium 145, Potassium 4.1, Chloride 115 H, Carbon Dioxide 23, BUN 36 H, Creatinine 0.6, Estimated Creat Clear 133, Estimated GFR (MDRD) 109, Glucose 119 H, Calcium 6.6 L, WBC 9.0, RBC 2.69 L, Hgb 7.9 *L, Hct 23.5 *L, MCV 87.4, RDW 14.2, Plt Count 149, MPV 7.5, Gran % 77.8, Gran # 7.0, Lymphocytes % 16.6, Monocytes % 5.0, Eosinophils % 0.3, Basophils % 0.2, Lymphocytes # 1.5, Monocytes # 0.5, Eosinophils # 0.0, Basophils # 0.0, [facility] MCHC 33.8, MCH 29.5 11/09/16 0610: WBC 8.5, RBC 2.72 L, Hgb 8.0 L, Hct 23.8 *L, MCV 87.3, RDW 14.1, Plt Count 150 , MPV 7.3 L, Gran % 76.9, Gran # 6.6, Lymphocytes % 17.9, Monocytes % 4.8, Eosinophils % 0.2, Basophils % 0.2, Lymphocytes # 1.5, Monocytes # 0.4, Eosinophils # 0.0, Basophils # 0.0, [facility] MCHC 33.5, MCH 29.2 11/09/16 0500: Misc Test Units BLOOD UNIT RELEASE 11/09/16 0410: Hgb 7.3 *L, Hct 22.6 *L 11/09/16 0145: Misc Test Units BLOOD UNIT RELEASE 11/08/16 2315: Misc Test Units BLOOD UNIT RELEASE 11/08/16 1957: Hgb 7.7 *L, Hct 23.7 *L 11/08/16 1415: Hgb 8.5 L, Hct 25.6 L 11/08/16 1020: Creatine Kinase 88, CK-MB (CK-2) Rel Index 1.3, CK and CKMB Interp 1.1, Troponin I < 0.02 11/08/16 1020: Amylase 44, Lipase 134 11/08/16 1020: Sodium 144, Potassium 3.4 L, Chloride 107, Carbon Dioxide 27, BUN 24 H, Creatinine 0.8, Estimated Creat Clear 97, Estimated GFR (MDRD) 78, Glucose 155 H, Calcium 8.0 L, Total Bilirubin 0.2, AST 9 L, ALT 17, Alkaline Phosphatase 45 L, Total Protein 6.6, Albumin 3.3 L, Globulin 3.3 H, Albumin/Globulin Ratio 1.0 L, WBC 10.0, RBC 3.49 L, Hgb 10.3 L, Hct 31.6 L, MCV 90.6, RDW 13.0, Plt Count 214, MPV 7.4, Gran % 79.9, Gran # 8.0 H, Lymphocytes % 15.3, Monocytes % 3.5, Eosinophils % 1.2, Basophils % 0.2, Lymphocytes # 1.5, Monocytes # 0.4, Eosinophils # 0.1, Basophils # 0.0, PUBS MCHC 32.6, MCH 29.5 11/08/16 1015: PT 11.2, INR 1.04, Antibody Screen NEGATIVE, Miscellaneous Test POSITIVE 11/08/16 0957: Emesis for Blood POSITIVE Imagin11/08/16 CT of abd/pelvis IMPRESSION: 1. Unusual partially calcified enhancing right upper quadrant mass. Etiology is indeterminate. The mass is inseparable from the right hepatic lobe. Exophytic liver lesion such as a large hemangioma is a consideration. A carcinoid tumor is also a consideration. However, there is not a significant desmoplastic reaction around the lesion. Further evaluation may be obtained with CT without and with contrast and with delayed imaging/hemangioma protocol. 2. Fluid-filled large bowel suggesting diarrhea disease/colitis. Disposition: Patient was transferred to [facility] via ambulance in stable and guarded condition. Orders with: SANJUANA PRICE MD Follow up: 2 WEEKS Activity: Limited activity Diet: Continue same diet Discharge to: ACUTE FACILITY TRANSFER Specify acute transfer facility: [facility] at 2051
== END 2016-11-09 20:43 | disposition short-term general hospital (02) | DRG 379 ==
LOC: ER 09:55 → 2ND 11:02
PROVIDERS: Emergency Medicine; Family Medicine; Surgery
PROC: 0DJ08ZZ Inspection of Upper Intestinal Tract, Via Natural or Artificial Opening Endoscopic (ICD-10-PCS; principal; 2016-11-09 07:00)
PROC: 3E0G8GC Introduction of Other Therapeutic Substance into Upper GI, Via Natural or Artificial Opening Endoscopic (ICD-10-PCS; principal; 2016-11-09 07:00)
DX: K26.0 Acute duodenal ulcer with hemorrhage (principal)
CPT/HCPCS: G0328; J2405; P9016; Q9967